=== PATIENT | female | born 1985 | race Caucasian/White ===

== ENCOUNTER 2016-05-07 11:45 | Observation (INO) | payer OTHER ==
[~2016-05-07] VITALS: Ht 170.2 cm; Wt 91.0 kg
[~2016-05-07 11:45] MED LIST: AUGM875T PO; BUPR100CR PO
[2016-05-07 12:06] VITALS: BP 153/81; PULSE 87
[2016-05-07] MEDS ORDERED: ONDANSETRON ODT 4 MG TAB PO PRN (12:45)
[2016-05-07] MEDS ORDERED: SODIUM CHLORIDE 0.9% FLUSH 5 ML FLUSH IVF PRN (12:45)
[2016-05-07] MEDS ORDERED: ACETAMINOPHEN 325 MG TAB PO PRN (12:45)
[2016-05-07] MEDS ORDERED: ZOLPIDEM TARTRATE 5 MG TAB PO PRN (12:45)
[2016-05-07 13:08] VITALS: BP 135/84; PULSE 83
[2016-05-07] MEDS: ASPIRIN EC 81 MG TABEC PO SCH (13:08)
[2016-05-07 13:35] VITALS: BP 129/79; PULSE 78
[2016-05-07 15:21] LABS: BASOPHIL % 0.3 % (0.0-2.0); EOSINOPHIL # 0.5 TH/MM3 (0-0.4); EOSINOPHIL % 4.4 % (0.0-4.0); HEMATOCRIT 37.2 % (35.0-46.0); HEMO FLAGS DIFF FINAL; LYMPH % 14.3 % (9.0-44.0); LYMPHOCYTE # 1.7 TH/MM3 (1.0-4.8); MEAN CELL VOLUME 89.1 FL (80.0-100.0); MEAN CORPUSCULAR HEMOGLOBIN 29.7 PG (27.0-34.0); MEAN CORPUSCULAR HGB CONC 33.3 % (32.0-36.0); MONO % 5.3 % (0.0-8.0); NEUT % 75.7 % (16.0-70.0); PLATELET COUNT 231 TH/MM3 (150-450); RED BLOOD COUNT 4.17 MIL/MM3 (4.00-5.30); RED CELL DISTRIBUTION WIDTH 12.9 % (11.6-17.2); WHITE BLOOD COUNT 11.9 TH/MM3 (4.0-11.0)
[2016-05-07 15:31] LABS: ALT (GPT) 21 U/L (10-53); ANION GAP 8 MEQ/L (5-15); AST (GOT) 41 U/L (15-37); BICARBONATE 19.8 MEQ/L (21.0-32.0); BLOOD UREA NITROGEN 6 MG/DL (7-18); CHLORIDE 108 MEQ/L (98-107); GLOMERULAR FILTRATION RATE 129 ML/MIN (>89); SODIUM (NA) 136 MEQ/L (136-145)
[2016-05-07 15:34] LABS: ALKALINE PHOSPHATASE 84 U/L (45-117); TOTAL BILIRUBIN ADULT 0.3 MG/DL (0.2-1.0)
[2016-05-07 15:53] VITALS: BP 129/72; PULSE 81; RESP 18; TEMP 98
--- NOTE | 2016-05-07 18:02 | PD ---
HPI Chief Complaint slurred speech and parasthesia right arm Date Seen: May 07, 2016 Time Seen: 09:30 Travel History International Travel<30 Days: No Contact w/Intl Traveler<30Days: No Known Affected Area: No History of Present Illness HPI PAtient is 33 weeks and had sudden onset of symptoms of slurred speech and right arm numbness and seeing spots with blurred vision. She ate and some symptoms improved but visual disturbance did not. She was sent from office for electrolytes and neurology consult Para: 0 : 1 History Past Medical History Medical History: Denies Significant Hx Past Surgical History Surgical History: No Previous Surgery Family History Family History: Negative Social History Alcohol Use: No Tobacco Use: No Substance Abuse: No Allergies-Medications (Allergen,Severity, Reaction): Coded Allergies: No Known Allergies (Verified , 11/08/15) Home Meds Active Scripts [id number] M1 875 Mg [id number] Mg PO BID 7 Days Prov:Vanna Barth MD 11/08/15 Bupropion Hcl (Wellbutrin Sr)100 Mg [id number] Mg PO DAILY #90 TAB Ref 3 Prov:Cheyenne Ram MD R3 01/25/15 Review of Systems Except as stated in HPI: all other systems reviewed are Neg Physical Exam Narrative GENERAL: Well-nourished, well-developed patient. SKIN: Warm and dry. HEAD: Normocephalic and atraumatic. EYES: No scleral icterus. No injection or drainage. ENT: No nasal drainage noted. Mucous membranes pink. Airway patent. NECK: Supple, trachea midline. No JVD. CARDIOVASCULAR: Regular rate and rhythm without murmurs, gallops, or rubs. RESPIRATORY: Breath sounds equal bilaterally. No accessory muscle use. BREASTS: Bilateral exam showed no masses , no retractions, no nipple discharge. ABDOMEN/GI: Abdomen soft, non-tender, bowel sounds present, no rebound, no guarding Gravid to 33 weeks size Fundal Height: [-] GENITOURINARY: External Genitalia: intact and normal in appearance BUS glands: [-] Cervix: [-] Dilatation: [-] Effacement: [-] Station: [-] Presentation: [-] Membranes: [intact or ruptured] Uterine Contractions: [-] FHT's: Category: 1 Baseline: [-] Reactive: [-] Variability: [-] Decels: [-] EXTREMITIES: No cyanosis or edema. BACK: Nontender without obvious deformity. No CVA tenderness. NEUROLOGICAL: Awake and alert. Motor and sensory grossly within normal limits. Five out of 5 muscle strength in all muscle groups. Normal speech. Data Data Vital Signs Reviewed: Yes Orders Place In Observation (05/07/16 ) Diet Regular Basic (05/07/16 Lunch) Vital Signs (Adult) RUSH.E4C-OPESR AWAKE (05/07/16 12:40) ^ Heart RUSH.QSHIFT (05/07/16 12:40) Activity Bed Rest With Brp (05/07/16 12:40) Complete Blood Count With Diff (05/07/16 12:40) Bedside Glucose RUSH.QD (05/07/16 12:40) Acetaminophen (Tylenol) (05/07/16 12:45) Sodium Chloride 0.9% Flush (Ns Flush) (05/07/16 21:00) Sodium Chloride 0.9% Flush (Ns Flush) (05/07/16 12:45) Zolpidem (Ambien) (05/07/16 12:45) Ondansetron Odt (Zofran Odt) (05/07/16 12:45) Aspirin Ec (Ecotrin Ec) (05/07/16 12:45) Comprehensive Metabolic Panel (05/07/16 12:40) Calcium (05/07/16 12:40) Electrocardiogram (05/07/16 ) Consult Neurology (05/07/16 ) (Hub Use Only)Inp Phy Cons/Ref (05/07/16 ) Labs Laboratory Tests Test 05/07/16 13:33 White Blood Count 11.9 Red Blood Count 4.17 Hemoglobin 12.4 Hematocrit 37.2 Mean Corpuscular Volume 89.1 Mean Corpuscular Hemoglobin 29.7 Mean Corpuscular Hemoglobin 33.3 Concent Red Cell Distribution Width 12.9 Platelet Count 231 Mean Platelet Volume 9.7 Neutrophils (%) (Auto) 75.7 Lymphocytes (%) (Auto) 14.3 Monocytes (%) (Auto) 5.3 Eosinophils (%) (Auto) 4.4 Basophils (%) (Auto) 0.3 Neutrophils # (Auto) 9.0 Lymphocytes # (Auto) 1.7 Monocytes # (Auto) 0.6 Eosinophils # (Auto) 0.5 Basophils # (Auto) 0.0 CBC Comment DIFF FINAL Differential Comment Sodium Level 136 Potassium Level 5.0 Chloride Level 108 Carbon Dioxide Level 19.8 Anion Gap 8 Blood Urea Nitrogen 6 Creatinine 0.56 Estimat Glomerular Filtration 129 Rate Random Glucose 50 Calcium Level 8.8 Total Bilirubin 0.3 Aspartate Amino Transf 41 (AST/SGOT) Alanine Aminotransferase 21 (ALT/SGPT) Alkaline Phosphatase 84 Total Protein 7.3 Albumin 2.5 MDM Interpretation(s) slurred speech and hypoglycemia R/o CVA or TIA Plan neurology consult and labs Admit 23 hour obs Jamar Phelps MD May 07, 2016 18:02
[2016-05-07 19:15] VITALS: BP 135/71; PULSE 91; RESP 16; TEMP 98
[2016-05-07] MEDS ORDERED: SODIUM CHLORIDE 0.9% FLUSH 5 ML FLUSH IVF SCH (21:00)
--- NOTE | 2016-05-07 21:49 | MB ---
cc: KASIA CUI M.D. DATE OF CONSULTATION: 05/07/2016 DATE OF : 1985, 30 REASON FOR CONSULTATION Slurring of speech, some numbness of face, blurred, double vision. HISTORY OF PRESENT ILLNESS: The patient is a 30 year-old woman who was in her usual state of health this morning when she started feeling a little strange, had some slurring of speech, some clumsiness of the hand, questionable double vision, came to the ER and hence admitted for evaluation. She seems to be back to baseline. Currently she does not have any diplopia. No ptosis. No numbness or tingling, drift or leg lag. No chest pain, or shortness of breath. She is 33 weeks . OTHER MEDICAL HISTORY: She states a few months ago she had similar symptoms attributed to low glucose levels, had something to eat and it went away, this time it did not. PAST MEDICAL HISTORY: Otherwise unremarkable. SOCIAL HISTORY: No alcohol, tobacco, . ALLERGIES: Declines. MEDICATIONS: vitamins. PHYSICAL EXAMINATION: Vitals: Her initial blood pressure was 153/81 with a heart rate of 87, temperature 98, current blood pressure is 129/72. Neck: Supple. No bruits. Heart: Regular. NEUROLOGIC: She is awake and alert. She is oriented and fluent. Pupils reactive. Visual seo full. Face symmetrical. Tongue midline. There is no ptosis. No nystagmus. No diplopia. Facial sensation is normal. Motor: There is no drift or leg lag. [id number], no dysmetria. Strength 5/5 proximally as well as distally. DTRs are 2+. Toes are both downgoing. Sensory exam is unremarkable for all modalities. LABORATORY DATA: Labs were reviewed. White count 11.9. Chemistries, her CO2 was 19.8 but her glucose level was 50. This was at 01:33 p.m., AST 41, albumin 2.5. IMPRESSION The patient is a 30-year-old woman with what sounds like TIA symptoms, however, very well may be due to her hypoglycemia, glucose level 50. RECOMMENDATIONS Recommend just staying on the baby aspirin and due to her history I would recommend getting an MRI of the brain without contrast. A baby aspirin was given to her initially, watch her blood pressure, control it. She does not exhibit any edema of the lower extremities. There is no history of any epilepsy in the family or with the patient. I do not think an EEG is indicated. If her MRI is unremarkable, certainly she can be discharged from my perspective. She will need to maintain her glucose levels, normal as much as possible, so instead of eating larger meals, I would recommend eating smaller meals and have some snacking in between. She may benefit from obtaining a Glucometer and checking an Accu-Chek every now and then. Orders have been placed. Thank you for allowing me to participate in this pleasant woman's care. Of note, I did tell her that if her imaging is negative she can go home and follow up with me as an outpatient. MD LISBETH Daley/SARAH /6:04 PM /8:30 PM
--- NOTE | 2016-05-08 09:49 | RADRPT ---
EXAM DATE/TIME: 05/08/2016 09:07 [facility] COMPARISON: No previous studies available for comparison. INDICATIONS : Blurred vision with slurred speech and right sided numbness/weakness yesterday that has resolved. MEDICAL HISTORY : None. SURGICAL HISTORY : None. ENCOUNTER: Subsequent ACUITY: 1 day PAIN SCORE: 0/10 LOCATION: cranial TECHNIQUE: Multiplanar, multisequence MRI of the brain was performed without contrast. FINDINGS: CEREBRUM: The ventricles are normal for age. No evidence of midline shift, mass lesion, hemorrhage or acute in farction. No extraaxial fluid collections are seen. The pituitary gland and suprasellar cistern are normal in configuration. WHITE MATTER: No significant signal abnormalities are seen in the white matter. POSTERIOR FOSSA: The cerebellum and brainstem are intact. The 4th ventricle is midline. The cerebellopontine angle is unremarkable. The cerebellar tonsils are normal in position. DIFFUSION IMAGING: No focal areas of restricted diffusion are seen. No evidence of acute infarction. EXTRACRANIAL: The visualized portions of the orbits and paranasal sinuses are unremarkable. CONCLUSION: Normal examination. Fernanda Roland MD on May 08, 2016 at 9:41 Board Certified Radiologist. This report was verified electronically.
[2016-05-08] MEDS: ASPIRIN EC 81 MG TABEC PO SCH (10:26)
[2016-05-08 10:29] VITALS: BP 138/75; PULSE 99
[2016-05-08 11:00] VITALS: RESP 18
--- NOTE | 2016-05-08 12:24 | HHI.PR ---
Subjective Remarks doing better symptoms resolved and MRI normal Objective Vital Signs Date Time Temp Pulse Resp B/P Pulse Ox O2 Delivery O2 Flow Rate FiO2 05/07/16 19:15 91 135/71 05/07/16 19:15 98.0 16 05/07/16 15:53 81 18 129/72 05/07/16 15:53 98.0 05/07/16 13:35 78 129/79 05/07/16 13:08 83 135/84 Result Diagram: 05/07/16 1333 05/07/16 1333 Other Results GENERAL: SKIN: Warm and dry. HEAD: Normocephalic. EYES: No scleral icterus. No injection or drainage. NECK: Supple, trachea midline. No JVD or lymphadenopathy. GASTROINTESTINAL: Abdomen soft, non-tender, nondistended. Gravid uterus MUSCULOSKELETAL: No cyanosis, or edema. BACK: Nontender without obvious deformity. No CVA tenderness. Assessment and Plan Problem List: (1) Blurred vision, bilateral Status: Acute (2) Arm paresthesia, right Status: Acute Plan: Sx resolved and [facility] May 08, 2016 12:24
--- NOTE | 2016-05-08 12:27 | HHI.DCPOC ---
Discharge Care Plan Diagnosis: (1) Arm paresthesia, right Report Symptoms to Your Doctor -Temperate above 100.5 degrees -Redness, of incision or excessive or foul smelling drainage -Unusual pain or calf pain -Increased vaginal bleeding -Painful or difficulty urinating -Feelings of extreme sadness or anxiety after 2 weeks Goals to Promote Your Health * To prevent worsening of your condition and complications * To maintain your health at the optimal level Directions to Meet Your Goals Take your medications as prescribed Follow your dietary instruction Follow activity as directed Ensure plenty of rest for recovery Drink fluids for hydration Keep your appointments as scheduled Take your immunizations and boosters as scheduled If your symptoms worsen call your PCP, if no PCP go to Urgent Care Center or Emergency Room Smoking is Dangerous to Your Health. Avoid second hand smoke Call the 24-hour crisis hotline for domestic abuse at Jamar Phelps MD May 08, 2016 12:27
--- NOTE | 2016-05-08 12:28 | HHI.DS ---
Admission Date May 07, 2016 at 11:45 Discharge Date: May 08, 2016 Admitting Diagnosis Diagnosis: (1) Arm paresthesia, right Brief History PAtient is 33 weeks and had sudden onset of symptoms of slurred speech and right arm numbness and seeing spots with blurred vision. She ate and some symptoms improved but visual disturbance did not. She was sent from office for electrolytes and neurology consult Hospital Course dc home after 23 hour obs sx resolved and MRI negative Pt Condition on Discharge: Good Discharge Disposition: Discharge Home Discharge Instructions Diet Instructions: As Tolerated, No Restrictions Activities You Can Perform: Regular-No Restrictions Follow up Referrals: [employer] - 1 Week @ [facility] with Jamar Phelps MD Continued Medications: Bupropion Hcl (Wellbutrin Sr) 100 Mg Tab 100 MG PO DAILY #90 Ref 3 TAB Discontinued Medications: () 875 Mg Tab 875 MG PO BID Days 7 TAB Jamar Phelps MD May 08, 2016 12:28
--- NOTE | 2016-05-08 16:13 | EKG ---
Date Performed: 05/07/2016 Time Performed: 13:45:38 PTAGE: 30 years EKG: Sinus rhythm WITH SHORT [place] INTERVAL BORDERLINE ECG NO PREVIOUS TRACING DOCTOR: Francisco Oreilly Interpretating Date/Time 05/08/2016 16:11:40
== END 2016-05-08 15:26 | disposition home or self-care (01) ==
LOC: H2EA 11:45
PROVIDERS: ADMIT Obstetrics & Gynecology; ATTEND Obstetrics & Gynecology
DX: O26.93 Pregnancy related conditions, unspecified, third trimester (principal); R20.0 Anesthesia of skin; R47.81 Slurred speech; E16.2 Hypoglycemia, unspecified; Z3A.33 33 weeks gestation of pregnancy
CPT/HCPCS: 70551; 80053; 82948; 85025; 93005; G0378

== ENCOUNTER 2016-06-06 14:39 | Emergency (ER) | payer OTHER ==
[2016-06-06] VITALS (16 sets, daily range): BP systolic 127–149; BP diastolic 63–86; PULSE 81–101; RESP 20; TEMP 98.2
[~2016-06-06 14:39] MED LIST changes: -AUGM875T PO
[2016-06-06 16:04] LABS: BLOOD, URINE NEG (NEG); COMMENT (UR) CULT NOT INDICATED; CULTURE IF INDICATED CULT NOT INDICATED; GLUCOSE,URINE NEG (NEG); KETONE, URINE NEG (NEG); MUCUS URINE FEW /lpf (OCC); NITRITE,URINE NEG (NEG); SQUAMOUS EPITHELIAL CELL URINE 1 /hpf (0-5); URINE COLOR YELLOW (YELLW/STRAW)
[2016-06-06 16:13] LABS: HEMATOCRIT 34.3 % (35.0-46.0); MEAN CELL VOLUME 86.7 FL (80.0-100.0); MEAN CORPUSCULAR HEMOGLOBIN 30.9 PG (27.0-34.0); MEAN CORPUSCULAR HGB CONC 35.7 % (32.0-36.0); PLATELET COUNT 192 TH/MM3 (150-450); RED BLOOD COUNT 3.96 MIL/MM3 (4.00-5.30); RED CELL DISTRIBUTION WIDTH 13.7 % (11.6-17.2); REVIEW FLAG FINAL; WHITE BLOOD COUNT 10.9 TH/MM3 (4.0-11.0)
[2016-06-06 16:24] LABS: ALT (GPT) 22 U/L (10-53); ANION GAP 9 MEQ/L (5-15); AST (GOT) 22 U/L (15-37); BICARBONATE 22.1 MEQ/L (21.0-32.0); BLOOD UREA NITROGEN 12 MG/DL (7-18); CHLORIDE 106 MEQ/L (98-107); GLOMERULAR FILTRATION RATE 83 ML/MIN (>89); POTASSIUM 4.1 MEQ/L (3.5-5.1); SODIUM (NA) 137 MEQ/L (136-145)
[2016-06-06 16:26] LABS: ALKALINE PHOSPHATASE 96 U/L (45-117); TOTAL BILIRUBIN ADULT 0.2 MG/DL (0.2-1.0)
--- NOTE | 2016-06-06 17:41 | PD ---
HPI Date Seen: Jun 06, 2016 Time Seen: 16:00 Travel History International Travel<30 Days: No Contact w/Intl Traveler<30Days: No Known Affected Area: No History of Present Illness HPI doing well hypertension 158/98 in office Para: 0 : 1 History Past Medical History Medical History: Denies Significant Hx Past Surgical History Surgical History: No Previous Surgery Family History Family History: Negative Social History Alcohol Use: No Tobacco Use: No Substance Abuse: No Allergies-Medications (Allergen,Severity, Reaction): Coded Allergies: Cat Dander (Verified Allergy, Severe, ITCHING, RUNNY NOSE, SNEEZING, RASH , 05/08/16) CATS Cultivated Oat Pollen (Verified Allergy, Severe, ITCHING, RUNNY NOSE, SNEEZING , 05/08/16) Horse Dander (Verified Allergy, Severe, ITCHING, RUNNY NOSE, SNEEZING AND RASH, 05/08/16) Home Meds Active Scripts Bupropion Hcl (Wellbutrin Sr)100 Mg [id number] Mg PO DAILY #90 TAB Ref 3 Prov:Cheyenne Ram MD R3 01/25/15 Review of Systems Except as stated in HPI: all other systems reviewed are Neg Physical Exam Vital Signs Date Time Temp Pulse Resp B/P Pulse Ox O2 Delivery O2 Flow Rate FiO2 06/06/16 16:21 81 127/63 06/06/16 16:20 98 06/06/16 16:15 84 06/06/16 16:15 101 143/79 06/06/16 16:05 99 06/06/16 16:00 20 06/06/16 16:00 93 149/71 06/06/16 16:00 98.2 06/06/16 16:00 87 06/06/16 15:55 95 06/06/16 15:50 97 06/06/16 15:45 90 06/06/16 15:45 93 138/76 06/06/16 15:40 93 06/06/16 15:35 93 06/06/16 15:31 91 138/86 06/06/16 15:30 100 06/06/16 15:25 89 06/06/16 15:20 93 06/06/16 15:15 92 137/83 06/06/16 15:13 88 141/79 Narrative GENERAL: Well-nourished, well-developed patient. SKIN: Warm and dry. HEAD: Normocephalic and atraumatic. EYES: No scleral icterus. No injection or drainage. ENT: No nasal drainage noted. Mucous membranes pink. Airway patent. NECK: Supple, trachea midline. No JVD. CARDIOVASCULAR: Regular rate and rhythm without murmurs, gallops, or rubs. RESPIRATORY: Breath sounds equal bilaterally. No accessory muscle use. BREASTS: Bilateral exam showed no masses , no retractions, no nipple discharge. ABDOMEN/GI: Abdomen soft, non-tender, bowel sounds present, no rebound, no guarding Gravid to [-] weeks size Fundal Height: [-] GENITOURINARY: External Genitalia: intact and normal in appearance BUS glands: [-] Cervix: [-] Dilatation: [-] Effacement: [-] Station: [-] Presentation: [-] Membranes: [intact or ruptured] Uterine Contractions: [-] FHT's: Category: [-] Baseline: [-] Reactive: [-] Variability: [-] Decels: [-] EXTREMITIES: No cyanosis or edema. BACK: Nontender without obvious deformity. No CVA tenderness. NEUROLOGICAL: Awake and alert. Motor and sensory grossly within normal limits. Five out of 5 muscle strength in all muscle groups. Normal speech. Data Data Vital Signs Reviewed: Yes Orders Vital Signs (Adult) .ON ADMISSION (06/06/16 15:12) ^ Labor Status (06/06/16 15:12) Urinalysis - C+S If Indicated (06/06/16 15:12) ^ Non Stress Test (06/06/16 15:12) Diet Regular Basic (06/06/16 Dinner) Cbc No Diff, Includes Plts (06/06/16 15:12) Comprehensive Metabolic Panel (06/06/16 15:12) Blood Pressure (06/06/16 15:12) Labs Laboratory Tests Test 06/06/16 15:30 White Blood Count 10.9 Red Blood Count 3.96 Hemoglobin 12.2 Hematocrit 34.3 Mean Corpuscular Volume 86.7 Mean Corpuscular Hemoglobin 30.9 Mean Corpuscular Hemoglobin 35.7 Concent Red Cell Distribution Width 13.7 Platelet Count 192 Mean Platelet Volume 10.4 Urine Color YELLOW Urine Turbidity CLEAR Urine pH 7.0 Urine Specific [place] 1.014 Urine Protein NEG Urine Glucose (UA) NEG Urine Ketones NEG Urine Occult Blood NEG Urine Nitrite NEG Urine Bilirubin NEG Urine Urobilinogen LESS THAN 2.0 Urine Leukocyte Esterase NEG Urine WBC LESS THAN 1 Urine Squamous Epithelial 1 Cells Urine Mucus FEW Microscopic Urinalysis Comment CULT NOT INDICATED Sodium Level 137 Potassium Level 4.1 Chloride Level 106 Carbon Dioxide Level 22.1 Anion Gap 9 Blood Urea Nitrogen 12 Creatinine 0.82 Estimat Glomerular Filtration 83 Rate Random Glucose 73 Calcium Level 8.8 Total Bilirubin 0.2 Aspartate Amino Transf 22 (AST/SGOT) Alanine Aminotransferase 22 (ALT/SGPT) Alkaline Phosphatase 96 Total Protein 7.2 Albumin 2.8 MDM Medical Record Reviewed: Yes Interpretation(s) induced hypertension improved with rest Narrative Course / MDM patient had serial BP and labs negative ok to dc home Plan dc home follow up 1 week Critical Care Time (mins): 20 Physician Communication discussed hypertension and term no preeclampsia but discussed risk and symptoms Attending Attestation pt needed to be seen in er Disposition: 01 DISCHARGE HOME Condition: Good Referrals: Jamar Phelps MD 1 week Patient Instructions: General Instructions Departure Forms: Tests/Procedures Jamar Phelps MD Jun 06, 2016 17:41
--- NOTE | 2016-06-06 17:43 | PD ---
HPI Travel History International Travel<30 Days: No Contact w/Intl Traveler<30Days: No Known Affected Area: No History of Present Illness HPI doing well hypertension 158/98 in office Allergies-Medications (Allergen,Severity, Reaction): Coded Allergies: Cat Dander (Verified Allergy, Severe, ITCHING, RUNNY NOSE, SNEEZING, RASH , 05/08/16) CATS Cultivated Oat Pollen (Verified Allergy, Severe, ITCHING, RUNNY NOSE, SNEEZING , 05/08/16) Horse Dander (Verified Allergy, Severe, ITCHING, RUNNY NOSE, SNEEZING AND RASH, 05/08/16) Home Meds Active Scripts Bupropion Hcl (Wellbutrin Sr)100 Mg Per186 Mg PO DAILY #90 TAB Ref 3 Prov:Cheyenne Ram MD R3 01/25/15 Physical Exam Vital Signs Date Time Temp Pulse Resp B/P Pulse Ox O2 Delivery O2 Flow Rate FiO2 06/06/16 16:21 81 127/63 06/06/16 16:20 98 06/06/16 16:15 84 06/06/16 16:15 101 143/79 06/06/16 16:05 99 06/06/16 16:00 20 06/06/16 16:00 93 149/71 06/06/16 16:00 98.2 06/06/16 16:00 87 06/06/16 15:55 95 06/06/16 15:50 97 06/06/16 15:45 90 06/06/16 15:45 93 138/76 06/06/16 15:40 93 06/06/16 15:35 93 06/06/16 15:31 91 138/86 06/06/16 15:30 100 06/06/16 15:25 89 06/06/16 15:20 93 06/06/16 15:15 92 137/83 06/06/16 15:13 88 141/79 Narrative GENERAL: Well-nourished, well-developed patient. SKIN: Warm and dry. HEAD: Normocephalic and atraumatic. EYES: No scleral icterus. No injection or drainage. ENT: No nasal drainage noted. Mucous membranes pink. Airway patent. NECK: Supple, trachea midline. No JVD. CARDIOVASCULAR: Regular rate and rhythm without murmurs, gallops, or rubs. RESPIRATORY: Breath sounds equal bilaterally. No accessory muscle use. BREASTS: Bilateral exam showed no masses , no retractions, no nipple discharge. ABDOMEN/GI: Abdomen soft, non-tender, bowel sounds present, no rebound, no guarding Gravid to [-] weeks size Fundal Height: [-] GENITOURINARY: External Genitalia: intact and normal in appearance BUS glands: [-] Cervix: [-] Dilatation: [-] Effacement: [-] Station: [-] Presentation: [-] Membranes: [intact or ruptured] Uterine Contractions: [-] FHT's: Category: [-] Baseline: [-] Reactive: [-] Variability: [-] Decels: [-] EXTREMITIES: No cyanosis or edema. BACK: Nontender without obvious deformity. No CVA tenderness. NEUROLOGICAL: Awake and alert. Motor and sensory grossly within normal limits. Five out of 5 muscle strength in all muscle groups. Normal speech. Data Data Orders Vital Signs (Adult) .ON ADMISSION (06/06/16 15:12) ^ Labor Status (06/06/16 15:12) Urinalysis - C+S If Indicated (06/06/16 15:12) ^ Non Stress Test (06/06/16 15:12) Diet Regular Basic (06/06/16 Dinner) Cbc No Diff, Includes Plts (06/06/16 15:12) Comprehensive Metabolic Panel (06/06/16 15:12) Blood Pressure (06/06/16 15:12) Attending Discharge Order (06/06/16 ) Labs Laboratory Tests Test 06/06/16 15:30 White Blood Count 10.9 Red Blood Count 3.96 Hemoglobin 12.2 Hematocrit 34.3 Mean Corpuscular Volume 86.7 Mean Corpuscular Hemoglobin 30.9 Mean Corpuscular Hemoglobin 35.7 Concent Red Cell Distribution Width 13.7 Platelet Count 192 Mean Platelet Volume 10.4 Urine Color YELLOW Urine Turbidity CLEAR Urine pH 7.0 Urine Specific [place] 1.014 Urine Protein NEG Urine Glucose (UA) NEG Urine Ketones NEG Urine Occult Blood NEG Urine Nitrite NEG Urine Bilirubin NEG Urine Urobilinogen LESS THAN 2.0 Urine Leukocyte Esterase NEG Urine WBC LESS THAN 1 Urine Squamous Epithelial 1 Cells Urine Mucus FEW Microscopic Urinalysis Comment CULT NOT INDICATED Sodium Level 137 Potassium Level 4.1 Chloride Level 106 Carbon Dioxide Level 22.1 Anion Gap 9 Blood Urea Nitrogen 12 Creatinine 0.82 Estimat Glomerular Filtration 83 Rate Random Glucose 73 Calcium Level 8.8 Total Bilirubin 0.2 Aspartate Amino Transf 22 (AST/SGOT) Alanine Aminotransferase 22 (ALT/SGPT) Alkaline Phosphatase 96 Total Protein 7.2 Albumin 2.8 MDM Diagnosis Diagnosis: Primary Impression: induced hypertension Qualified Code: O13.3 - induced hypertension, third trimester Disposition: 01 DISCHARGE HOME Condition: Good Referrals: Jamar Phelps MD 1 week Patient Instructions: General Instructions Departure Forms: Tests/Procedures Jamar Phelps MD Jun 06, 2016 17:43
== END 2016-06-06 17:49 | disposition home or self-care (01) ==
LOC: HOBED 14:39
DX: O13.9 Gestational [pregnancy-induced] hypertension without significant proteinuria, unspecified trimester (principal); Z3A.00 Weeks of gestation of pregnancy not specified
CPT/HCPCS: 36415; 59025; 80053; 81001; 85027

== ENCOUNTER 2016-06-20 08:09 | Inpatient (IN) | payer OTHER ==
[2016-06-20] VITALS (52 sets, daily range): BP systolic 117–153; BP diastolic 64–104; PULSE 40–116; RESP 18–20; TEMP 97.5–98.8; O2SAT 98–100
[2016-06-20] MEDS ORDERED: SODIUM CHLORIDE 0.9% FLUSH 5 ML FLUSH IV FLUSH PRN (08:30)
[2016-06-20] MEDS ORDERED: SODIUM CHLOR 0.9% 1000 ML INJ 1,000 ML OTHER PRN (08:30)
--- NOTE | 2016-06-20 08:51 | HHI.HP ---
HPI Chief Complaint induction at 39 weeks Date Seen: Jun 20, 2016 Time Seen: 08:30 Travel History International Travel<30 Days: No Contact w/Intl Traveler<30Days: No Known Affected Area: No History of Present Illness HPI 30 yo comes for induction of labor. She has had 2-3 episodes of headache trouble with speech and numbness. She has has episodes of elevated BP but not high enough to deliver before 39 weeks nick[pite a non-favorable she and I have decided delivery with minor symptoms described warrants risk of induction Para: 0 : 1 History Past Medical History Medical History: Denies Significant Hx Past Surgical History Surgical History: No Previous Surgery Family History Family History: Negative Social History Alcohol Use: No Tobacco Use: No Substance Abuse: No Allergies-Medications (Allergen,Severity, Reaction): Coded Allergies: Cat Dander (Verified Allergy, Severe, ITCHING, RUNNY NOSE, SNEEZING, RASH , 05/08/16) CATS Cultivated Oat Pollen (Verified Allergy, Severe, ITCHING, RUNNY NOSE, SNEEZING , 05/08/16) Horse Dander (Verified Allergy, Severe, ITCHING, RUNNY NOSE, SNEEZING AND RASH, 05/08/16) Home Meds Active Scripts Bupropion Hcl (Wellbutrin Sr)100 Mg [id number] Mg PO DAILY #90 TAB Ref 3 Prov:Cheyenne Ram MD 01/25/15 Review of Systems Except as stated in HPI: all other systems reviewed are Neg Physical Exam Narrative GENERAL: Well-nourished, well-developed patient. SKIN: Warm and dry. HEAD: Normocephalic and atraumatic. EYES: No scleral icterus. No injection or drainage. ENT: No nasal drainage noted. Mucous membranes pink. Airway patent. NECK: Supple, trachea midline. No JVD. CARDIOVASCULAR: Regular rate and rhythm without murmurs, gallops, or rubs. RESPIRATORY: Breath sounds equal bilaterally. No accessory muscle use. BREASTS: Bilateral exam showed no masses , no retractions, no nipple discharge. ABDOMEN/GI: Abdomen soft, non-tender, bowel sounds present, no rebound, no guarding Gravid to [-] weeks size Fundal Height: [-] GENITOURINARY: External Genitalia: intact and normal in appearance BUS glands: [-] Cervix: [-] Dilatation: [-] Effacement: [-] Station: [-] Presentation: [-] Membranes: [intact or ruptured] Uterine Contractions: [-] FHT's: Category: [-] Baseline: [-] Reactive: [-] Variability: [-] Decels: [-] EXTREMITIES: No cyanosis or edema. BACK: Nontender without obvious deformity. No CVA tenderness. NEUROLOGICAL: Awake and alert. Motor and sensory grossly within normal limits. Five out of 5 muscle strength in all muscle groups. Normal speech. Data Data Vital Signs Reviewed: Yes Orders Admit To Inpatient (06/20/16 ) Diet Regular Basic (06/20/16 Breakfast) ^ Labor Induction (06/20/16 08:30) ^ Vaginal Insert (06/20/16 08:30) ^ Vaginal Lavage (06/20/16 08:30) ^ Heart (06/20/16 08:30) Sodium Chloride 0.9% Flush (Ns Flush) (06/20/16 09:00) Sodium Chloride 0.9% Flush (Ns Flush) (06/20/16 08:30) Sodium Chlor 0.9% 1000 Ml Inj (Ns 1000 M (06/20/16 08:30) Misoprostol Supp (Cytotec Supp) (06/20/16 12:30) Inpatient Certification (06/20/16 ) Assessment/Plan Problem List: (1) 39 weeks gestation of (2) Hypertension complicating Assessment and Plan induction Jamar Phelps MD Jun 20, 2016 08:51
[2016-06-20] MEDS ORDERED: SODIUM CHLORIDE 0.9% FLUSH 5 ML FLUSH IV FLUSH SCH (09:00)
[2016-06-20] MEDS ORDERED: PENICILLIN G POTASSIUM INJ 5,000,000 UNITS in SODIUM CHLORIDE 0.9% INJ 100 ML IV ONE (10:00)
[2016-06-20] MEDS ORDERED: MISOPROSTOL 25 MCG SUPP VAGINAL PRN (10:00)
[2016-06-20] MEDS ORDERED: NS 500 ML BOLUS IV PRN (10:15)
[2016-06-20] MEDS ORDERED: MINERAL OIL 10 ML VIAL TOP PRN (10:15)
[2016-06-20] MEDS ORDERED: LIDOCAINE HCL 1% 50 ML VIAL I-DERMAL PRN (10:15)
[2016-06-20] MEDS ORDERED: NS 1000 ML IV PRN (10:15)
[2016-06-20] MEDS ORDERED: LACTATED RINGER'S 1000 ML BOLUS IV PRN (10:15)
[2016-06-20] MEDS ORDERED: CITRIC ACID-SODIUM CITRATE LIQ 30 ML UDC PO SCH (10:15)
[2016-06-20] MEDS ORDERED: LIDOCAINE HCL 1% 50 ML VIAL INFIL PRN (10:15)
[2016-06-20] MEDS ORDERED: OXYTOCIN 30 UNITS 500ML PREMIX IV ONE (10:15)
[2016-06-20 10:17] LABS: AUTOMATED NEUTROPHIL # 3.7 TH/MM3 (1.8-7.7); BASOPHIL % 0.3 % (0.0-2.0); EOSINOPHIL # 0.3 TH/MM3 (0-0.4); EOSINOPHIL % 5.1 % (0.0-4.0); HEMATOCRIT 35.7 % (35.0-46.0); HEMO FLAGS DIFF FINAL; LYMPH % 18.6 % (9.0-44.0); MEAN CELL VOLUME 88.2 FL (80.0-100.0); MEAN CORPUSCULAR HEMOGLOBIN 30.1 PG (27.0-34.0); MEAN CORPUSCULAR HGB CONC 34.2 % (32.0-36.0); MONO % 6.1 % (0.0-8.0); NEUT % 69.9 % (16.0-70.0); PLATELET COUNT 124 TH/MM3 (150-450); RED BLOOD COUNT 4.05 MIL/MM3 (4.00-5.30); RED CELL DISTRIBUTION WIDTH 13.6 % (11.6-17.2); WHITE BLOOD COUNT 5.3 TH/MM3 (4.0-11.0)
[2016-06-20 10:53] LABS: BACTERIA, URINE RARE /hpf; BLOOD, URINE NEG (NEG); GLUCOSE,URINE NEG (NEG); KETONE, URINE NEG (NEG); MUCUS URINE FEW /lpf (OCC); NITRITE,URINE NEG (NEG); PH, URINE 6.5 (5.0-8.5); SQUAMOUS EPITHELIAL CELL URINE 1 /hpf (0-5); URINE COLOR YELLOW (YELLW/STRAW)
[2016-06-20 10:57] LABS: COMMENT (UR) CULT NOT INDICATED; CULTURE IF INDICATED CULT NOT INDICATED
[2016-06-20] MEDS ORDERED: MISOPROSTOL 25 MCG SUPP VAGINAL ONE (14:00)
[2016-06-20] MEDS ORDERED: PENICILLIN G POTASSIUM INJ 2,500,000 UNITS in SODIUM CHLORIDE 0.9% INJ 100 ML IV SCH ×2 (14:00→21:30)
--- NOTE | 2016-06-20 16:50 | PD.LABORPN ---
Subjective Subjective doing well starting to get uncomfortable Objective Vital Signs Vital Signs Date Time Temp Pulse Resp B/P Pulse Ox O2 Delivery O2 Flow Rate FiO2 06/20/16 13:30 20 06/20/16 13:30 97.5 06/20/16 13:19 81 153/98 06/20/16 10:26 81 147/91 Objective Pelvic Exam: Cervix: [-] Dilatation: 1 Effacement: 80 Station: -2 Presentation: [-] Membranes: AROM MSF Uterine Contractions: [-] FHT's: Category: 1 Baseline: [-] Reactive: [-] Variability: [-] Decels: [-] Assessment/Plan Problem List: (1) 39 weeks gestation of (2) Hypertension complicating Jamar Phelps MD Jun 20, 2016 16:50
[2016-06-20] MEDS: LACTATED RINGER'S 1000 ML IV SCH ×2 (16:58→21:55)
[2016-06-20] MEDS ORDERED: OXYTOCIN 30 UNITS-500ML PREMIX 500 ML IV SCH (17:00)
[2016-06-20] MEDS: ONDANSETRON HCL 4 MG/2 ML VIAL IV PUSH PRN ×2 (17:33→22:11)
[2016-06-20] MEDS ORDERED: fentaNYL 2MCG-BUPIV 0.125% INJ 100 ML ONE (19:40)
[2016-06-20] MEDS ORDERED: fentaNYL 2MCG-BUPIV 0.125% 100 ML EPIDURAL SCH (20:15)
[2016-06-20] MEDS ORDERED: DO NOT ADMINISTER ANTICOAGULANTS XX PRN (20:15)
[2016-06-20] MEDS ORDERED: ePHEDrine/NS 25 MG/5 ML SYR IV PRN (20:15)
[2016-06-20] MEDS ORDERED: NO SYSTEM NARCOTICS XX PRN (20:15)
[2016-06-20] MEDS ORDERED: EPIDURAL-NO SYSTEMIC NARCOTICS XX PRN (23:15)
[2016-06-20] MEDS ORDERED: EPIDURAL-NALOXONE HCL 0.4 MG/ML AMP IV PRN (23:15)
[2016-06-20] MEDS ORDERED: EPIDURAL-DIPHENHYDRAMINE HCL 50 MG/ML VIAL IV PUSH PRN (23:15)
[2016-06-20] MEDS ORDERED: EPIDURAL-DO NOT ADMINISTER ANTICOAGULANTS XX PRN (23:15)
[2016-06-20] MEDS ORDERED: EPIDURAL-DIPHENHYDRAMINE HCL 50 MG CAP PO PRN (23:15)
[2016-06-20 23:50] LABS: AUTOMATED NEUTROPHIL # 6.1 TH/MM3 (1.8-7.7); BASOPHIL % 0.3 % (0.0-2.0); EOSINOPHIL # 0.1 TH/MM3 (0-0.4); EOSINOPHIL % 1.4 % (0.0-4.0); HEMATOCRIT 32.4 % (35.0-46.0); HEMO FLAGS DIFF FINAL; LYMPH % 13.3 % (9.0-44.0); MEAN CELL VOLUME 87.6 FL (80.0-100.0); MEAN CORPUSCULAR HEMOGLOBIN 30.5 PG (27.0-34.0); MEAN CORPUSCULAR HGB CONC 34.8 % (32.0-36.0); MONO % 4.7 % (0.0-8.0); NEUT % 80.3 % (16.0-70.0); PLATELET COUNT 129 TH/MM3 (150-450); RED CELL DISTRIBUTION WIDTH 13.6 % (11.6-17.2); WHITE BLOOD COUNT 7.5 TH/MM3 (4.0-11.0)
[2016-06-20] MEDS ORDERED: MORPHINE SULFATE PF 5 MG/10 ML VIAL ONE (23:58)
[2016-06-21] VITALS (35 sets, daily range): BP systolic 107–147; BP diastolic 48–102; PULSE 55–85; RESP 16–20; TEMP 97.4–98.1; O2SAT 96–100
--- NOTE | 2016-06-21 00:06 | RADRPT ---
EXAM DATE/TIME: 06/20/2016 23:43 [place] COMPARISON: No previous studies available for comparison. INDICATIONS : Evaluate for any foreign bodies as Section was performed without an instrument count. MEDICAL HISTORY : None. SURGICAL HISTORY : section. ENCOUNTER: Initial ACUITY: 1 day PAIN SCORE: Non-responsive. LOCATION: Bilateral pelvis FINDINGS: Frontal view of the pelvis was performed. No radiopaque foreign bodies seen about the pelvis. At th e margin of the [id number] superiorly in the midline, there is a thin serpiginous density which co uld represent suture. CONCLUSION: 1. No metallic objects seen. 2. Serpiginous linear density midline lower abdomen, possibly representing suture. Drew Rowland MD on June 21, 2016 at 0:01 Board Certified Radiologist. This report was verified electronically.
[2016-06-21 00:10] LABS: ALT (GPT) 112 U/L (10-53); ANION GAP 10 MEQ/L (5-15); AST (GOT) 140 U/L (15-37); BICARBONATE 26.4 MEQ/L (21.0-32.0); BLOOD UREA NITROGEN 8 MG/DL (7-18); CHLORIDE 104 MEQ/L (98-107); GLOMERULAR FILTRATION RATE 89 ML/MIN (>89); POTASSIUM 4.3 MEQ/L (3.5-5.1); SODIUM (NA) 140 MEQ/L (136-145)
[2016-06-21 00:13] LABS: ALKALINE PHOSPHATASE 89 U/L (45-117); TOTAL BILIRUBIN ADULT 0.3 MG/DL (0.2-1.0)
[2016-06-21] MEDS ORDERED: MAGNESIUM SULFATE 40 GM PREMIX 1,000 ML IV SCH ×2 (00:19→10:05)
[2016-06-21] MEDS ORDERED: LACTATED RINGER'S 1000 ML INJ 1,000 ML IV SCH ×2 (00:19→05:36)
[2016-06-21] MEDS ORDERED: MAGNESIUM SULFATE 40 GM PREMIX 1,000 ML ONE (00:28)
[2016-06-21] MEDS ORDERED: CALCIUM GLUCONATE 10% 1 GM/10 ML VIAL IV PUSH PRN ×2 (00:30→10:15)
[2016-06-21] MEDS ORDERED: MAGNESIUM SULFATE 4 GM PREMIX 100 ML IV ONE (00:30)
[2016-06-21] MEDS ORDERED: SODIUM CHLORIDE 0.9% FLUSH 5 ML FLUSH IV PRN ×3 (00:30→10:15)
--- NOTE | 2016-06-21 00:42 | PD.OB.DELI ---
Procedure Note Section Procedure Pre Op Diagnosis: (1) 39 weeks gestation of (2) Hypertension complicating Post Op Diagnosis: (1) 39 weeks gestation of (2) induced hypertension Performed by Jamar Phelps Procedure: Primary Low Transverse Sec Indication for delivery: Nonreassuring heart tracing Informed consent obtained: For anesthesia, For procedure Confirmed correct: Patient, Procedure, Time-out taken Monitoring during procedure: Blood pressure monitoring Urinary catheter: To dependent drainage Sterile preparation: Duraprep Position: Supine with wedge to left side Operative Features Skin Incision: Pfannenstiel Uterine Incision: Low transverse w/knife / blunt ext Membranes Ruptured: Previously Presentation: Occiput anterior Delivery of infant: Uneventful Infant: Female One Minute : 9 Five Minute : 9 Weight: 6# 15 oz Status of : Viable Placenta delivered: Intact Estimated blood loss: 500 Procedure tolerated: Well Maternal Condition: Stable Condition: Stable Procedure in detail upon arrival to or FHT 60 by doppler and we moved along with urgent CS no count at my request and no 3 min dry time of duraprep. Everyone present for delivery Jamar Phelps MD Jun 21, 2016 00:42
[2016-06-21] MEDS ORDERED: SIMETHICONE 80 MG CHEWABLE TAB PO PRN (00:45)
[2016-06-21] MEDS ORDERED: KETOROLAC TROMETHAMINE 60 MG/2 ML (IM) VIAL IM PRN (00:45)
[2016-06-21] MEDS ORDERED: OXYTOCIN 30 UNITS-500ML PREMIX 500 ML IV ONE (00:45)
--- NOTE | 2016-06-21 00:46 | HHI.PR ---
Subjective Remarks Patient has elevated LFT and low platelets. She is now delivered but needs magnesium for HEELP Objective Vital Signs Date Time Temp Pulse Resp B/P Pulse Ox O2 Delivery O2 Flow Rate FiO2 06/21/16 00:38 123/57 06/21/16 00:30 64 122/49 06/21/16 00:15 147/78 06/21/16 00:15 100 06/20/16 23:45 98 06/20/16 23:45 58 18 06/20/16 23:45 97.7 06/20/16 22:25 83 100 06/20/16 22:20 88 100 06/20/16 22:20 88 100 06/20/16 22:15 98 06/20/16 22:15 89 123/78 100 06/20/16 21:57 18 06/20/16 21:55 40 06/20/16 21:50 76 06/20/16 21:45 94 121/75 06/20/16 21:45 83 06/20/16 21:28 98.2 06/20/16 21:25 101 06/20/16 21:20 97 06/20/16 21:16 89 120/68 06/20/16 21:15 92 06/20/16 20:55 89 06/20/16 20:50 87 124/71 06/20/16 20:50 86 06/20/16 20:45 91 06/20/16 20:45 93 117/65 06/20/16 20:40 95 118/64 06/20/16 20:40 85 06/20/16 20:35 80 125/75 06/20/16 20:35 76 06/20/16 20:30 99 130/81 06/20/16 20:30 96 06/20/16 20:25 94 06/20/16 20:25 98 133/76 06/20/16 20:20 92 135/73 06/20/16 20:20 85 06/20/16 20:15 86 06/20/16 20:15 87 135/81 06/20/16 20:10 89 06/20/16 20:10 112 142/85 06/20/16 20:05 102 06/20/16 20:05 93 136/80 06/20/16 20:00 98 06/20/16 20:00 106 139/83 06/20/16 19:56 98.8 18 06/20/16 19:56 98 141/88 06/20/16 19:55 91 100 06/20/16 19:52 92 144/90 06/20/16 19:50 92 100 06/20/16 19:45 90 138/88 100 06/20/16 19:45 88 06/20/16 19:00 87 148/104 06/20/16 18:53 85 143/92 06/20/16 18:00 95 144/85 06/20/16 17:45 83 142/92 06/20/16 17:20 98.0 06/20/16 17:15 90 147/95 06/20/16 17:00 95 147/95 06/20/16 16:54 88 144/92 06/20/16 16:45 84 135/103 06/20/16 16:40 86 147/95 06/20/16 16:39 82 141/104 06/20/16 13:30 20 06/20/16 13:30 97.5 06/20/16 13:19 81 153/98 06/20/16 10:26 81 147/91 Result Diagram: 06/20/16 2230 06/20/16 2230 Jamar Phelps MD Jun 21, 2016 00:46
[2016-06-21 06:19] LABS: HEMATOCRIT 33.9 % (35.0-46.0); MEAN CELL VOLUME 86.7 FL (80.0-100.0); MEAN CORPUSCULAR HGB CONC 34.7 % (32.0-36.0); PLATELET COUNT 136 TH/MM3 (150-450); RED BLOOD COUNT 3.91 MIL/MM3 (4.00-5.30); RED CELL DISTRIBUTION WIDTH 13.8 % (11.6-17.2); REVIEW FLAG FINAL; WHITE BLOOD COUNT 14.6 TH/MM3 (4.0-11.0)
[2016-06-21 06:52] LABS: ALT (GPT) 107 U/L (10-53); ANION GAP 12 MEQ/L (5-15); AST (GOT) 126 U/L (15-37); BICARBONATE 22.8 MEQ/L (21.0-32.0); BLOOD UREA NITROGEN 6 MG/DL (7-18); CHLORIDE 100 MEQ/L (98-107); GLOMERULAR FILTRATION RATE 95 ML/MIN (>89); POTASSIUM 3.9 MEQ/L (3.5-5.1); SODIUM (NA) 135 MEQ/L (136-145)
[2016-06-21 06:55] LABS: ALKALINE PHOSPHATASE 98 U/L (45-117); TOTAL BILIRUBIN ADULT 0.3 MG/DL (0.2-1.0)
[2016-06-21] MEDS ORDERED: SODIUM CHLORIDE 0.9% FLUSH 5 ML FLUSH IV SCH ×3 (09:00→21:00)
[2016-06-21] MEDS ORDERED: DOCUSATE SODIUM 50 MG/SENNA 8.6 MG TAB PO PRN (10:15)
[2016-06-21] MEDS ORDERED: ALUMINUM/MAGNESIUM/SIMETH 30 ML CUP PO PRN (10:15)
[2016-06-21] MEDS ORDERED: WITCH HAZEL 50%/GLYCERIN 12.5% 40 PAD JAR TOPICAL PRN (10:15)
[2016-06-21] MEDS ORDERED: BENZOCAINE 20% TOPICAL SPRAY 60 ML CAN TOPICAL PRN (10:15)
[2016-06-21] MEDS ORDERED: ZOLPIDEM TARTRATE 5 MG TAB PO PRN (10:15)
--- NOTE | 2016-06-21 10:16 | HHI.OB ---
Subjective Post Day: 1 Remarks doing well does not feel good on magnesium Objective Vitals/I&O Vital Signs Date Time Temp Pulse Resp B/P Pulse Ox O2 Delivery O2 Flow Rate FiO2 06/21/16 08:52 97.4 18 06/21/16 08:49 81 130/80 06/21/16 06:05 134/77 06/21/16 06:05 55 06/21/16 06:04 18 06/21/16 05:06 18 06/21/16 05:00 63 129/75 06/21/16 04:04 18 06/21/16 04:00 63 107/78 06/21/16 03:10 97.7 06/21/16 03:10 18 06/21/16 03:00 82 129/87 06/21/16 03:00 18 06/21/16 02:58 69 111/75 06/21/16 02:30 64 18 145/82 06/21/16 01:45 131/73 06/21/16 01:45 16 06/21/16 01:45 98.1 06/21/16 01:15 70 121/64 06/21/16 01:15 18 06/21/16 00:52 68 18 123/61 96 06/21/16 00:51 98.0 06/21/16 00:43 68 06/21/16 00:43 114/48 06/21/16 00:43 76 18 97 06/21/16 00:38 123/57 06/21/16 00:30 64 122/49 06/21/16 00:30 16 06/21/16 00:15 147/78 06/21/16 00:15 100 06/21/16 00:15 16 06/20/16 23:45 98 06/20/16 23:45 58 18 06/20/16 23:45 97.7 06/20/16 22:30 18 06/20/16 22:25 83 100 06/20/16 22:20 88 100 06/20/16 22:20 88 100 06/20/16 22:15 98 06/20/16 22:15 18 06/20/16 22:15 89 123/78 100 06/20/16 22:10 116 100 06/20/16 22:05 108 100 06/20/16 22:00 73 127/75 98 06/20/16 22:00 71 06/20/16 21:57 18 06/20/16 21:55 40 06/20/16 21:50 76 06/20/16 21:45 94 121/75 06/20/16 21:45 83 06/20/16 21:40 76 98 06/20/16 21:35 84 99 06/20/16 21:30 81 06/20/16 21:30 85 130/81 99 06/20/16 21:30 18 06/20/16 21:28 98.2 06/20/16 21:25 101 06/20/16 21:20 97 06/20/16 21:16 89 120/68 06/20/16 21:15 92 06/20/16 21:00 18 06/20/16 20:55 89 06/20/16 20:50 87 124/71 06/20/16 20:50 86 06/20/16 20:45 18 06/20/16 20:45 91 06/20/16 20:45 93 117/65 06/20/16 20:40 95 118/64 06/20/16 20:40 85 06/20/16 20:35 80 125/75 06/20/16 20:35 76 06/20/16 20:30 99 130/81 06/20/16 20:30 96 06/20/16 20:30 18 06/20/16 20:25 94 06/20/16 20:25 98 133/76 06/20/16 20:20 92 135/73 06/20/16 20:20 85 06/20/16 20:15 86 06/20/16 20:15 87 135/81 06/20/16 20:10 89 06/20/16 20:10 112 142/85 06/20/16 20:05 102 06/20/16 20:05 93 136/80 06/20/16 20:00 98 06/20/16 20:00 106 139/83 06/20/16 19:56 98.8 18 06/20/16 19:56 98 141/88 06/20/16 19:55 91 100 06/20/16 19:52 92 144/90 06/20/16 19:50 92 100 06/20/16 19:45 90 138/88 100 06/20/16 19:45 88 06/20/16 19:00 87 148/104 06/20/16 18:53 85 143/92 06/20/16 18:00 95 144/85 06/20/16 17:45 83 142/92 06/20/16 17:20 98.0 06/20/16 17:15 90 147/95 06/20/16 17:00 95 147/95 06/20/16 16:54 88 144/92 06/20/16 16:45 84 135/103 06/20/16 16:40 86 147/95 06/20/16 16:39 82 141/104 06/20/16 13:30 20 06/20/16 13:30 97.5 06/20/16 13:19 81 153/98 06/20/16 10:26 81 147/91 Objective Remarks GENERAL: Well-nourished, well-developed patient. . ABDOMEN/GI: Abdomen soft, non-tender. Fundus: Firm, non-tender at umbilicus. GENITOURINARY: Light to moderate bleeding. EXTREMITIES: No cyanosis or edema, non-tender, without signs of DVT. Medications and IVs Current Medications Medications (Trade) Dose Ordered Sig/Yennifer Route Start Time Stop Time Status Last Admin Miscellaneous Information No systemic narcotics to be given except... UNSCH PRN XX 06/20/16 20:15 06/21/16 20:14 Miscellaneous Information DO NOT ADMINISTER ANY ANTICOAGUL... UNSCH PRN XX 06/20/16 20:15 06/21/16 20:14 (Lr 1000 ml Inj) 1,000 ml @ 100 mls/hr Q10H IV 06/21/16 05:36 06/22/16 01:35 (NS Flush) 2 ml BID IV 06/21/16 09:00 (NS Flush) 2 ml UNSCH PRN IV 06/21/16 00:45 (Mylicon Chew) 80 mg QID PRN PO 06/21/16 00:45 06/21/16 08:47 (Motrin) 600 mg Q6H PRN PO 06/21/16 00:45 (Toradol Inj) 30 mg Q6H PRN IM 06/21/16 00:45 06/22/16 00:44 (Percocet 5-325 Mg) 1 tab Q4H PRN PO 06/21/16 00:45 (Percocet 5-325 Mg) 2 tab Q4H PRN PO 06/21/16 00:45 (M-M-R Ii Inj) 0.5 ml ONCE ONCE SQ 06/22/16 16:00 06/22/16 16:01 (Boostrix Inj) 0.5 ml ONCE ONCE IM 06/22/16 16:00 06/22/16 16:01 Miscellaneous Information NO SYSTEMIC NARCOTICS TO BE GIVEN FO... UNSCH PRN XX 06/20/16 23:15 06/21/16 23:14 (Narcan Inj) 0.4 mg UNSCH PRN IV 06/20/16 23:15 06/21/16 23:14 (Benadryl Inj) 25 mg Q6H PRN IV PUSH 06/20/16 23:15 06/21/16 23:14 (Benadryl) 50 mg Q6H PRN PO 06/20/16 23:15 06/21/16 23:14 Miscellaneous Information ALL NURSING DEPARTMENTS UNSCH PRN XX 06/20/16 23:15 06/21/16 23:14 (NS Flush) 2 ml UNSCH PRN IV 06/21/16 10:15 UNV IV Flush 2 ml 2 ml BID IV 06/21/16 10:15 UNV (Magnesium Sulfate 40 Gm Premix) 1,000 ml @ 50 mls/hr Q20H IV 06/21/16 10:05 06/21/16 18:00 UNV (Calcium Gluconate Inj) 1 gm UNSCH PRN IV PUSH 06/21/16 10:15 UNV (Protonix Inj) 40 mg Q12H IV PUSH 06/21/16 10:15 06/22/16 15:00 UNV Assessment/Plan Problem List: (1) 39 weeks gestation of (2) Hypertension complicating (3) delivery delivered Assessment and Plan [place] Jamar Phelps MD Jun 21, 2016 10:16
[2016-06-21] MEDS ORDERED: OXYTOCIN 30 UNITS-500ML PREMIX 500 ML IV PRN (10:45)
[2016-06-21] MEDS: PANTOPRAZOLE SODIUM 40 MG VIAL IV PUSH SCH ×2 (12:02→23:40)
[2016-06-21] MEDS: oxyCODONE/ACETAMINOPHEN 5 MG/325 MG TAB PO PRN (21:19)
[2016-06-21] MEDS: IBUPROFEN 600 MG TAB PO PRN (21:19)
[2016-06-22] MEDS: oxyCODONE/ACETAMINOPHEN 5 MG/325 MG TAB PO PRN ×4 (05:00→23:56)
[2016-06-22] MEDS: IBUPROFEN 600 MG TAB PO PRN ×4 (05:00→23:56)
[2016-06-22 06:57] LABS: AUTOMATED NEUTROPHIL # 11.9 TH/MM3 (1.8-7.7); BASOPHIL % 0.1 % (0.0-2.0); EOSINOPHIL % 0.3 % (0.0-4.0); HEMATOCRIT 31.6 % (35.0-46.0); HEMO FLAGS DIFF FINAL; LYMPH % 9.2 % (9.0-44.0); LYMPHOCYTE # 1.3 TH/MM3 (1.0-4.8); MEAN CELL VOLUME 86.4 FL (80.0-100.0); MEAN CORPUSCULAR HEMOGLOBIN 29.9 PG (27.0-34.0); MEAN CORPUSCULAR HGB CONC 34.5 % (32.0-36.0); MONO % 6.1 % (0.0-8.0); NEUT % 84.3 % (16.0-70.0); PLATELET COUNT 160 TH/MM3 (150-450); RED BLOOD COUNT 3.66 MIL/MM3 (4.00-5.30); RED CELL DISTRIBUTION WIDTH 13.4 % (11.6-17.2); WHITE BLOOD COUNT 14.1 TH/MM3 (4.0-11.0)
[2016-06-22 07:20] VITALS: BP 115/78; PULSE 79; RESP 18; TEMP 98.1
[2016-06-22] MEDS: PANTOPRAZOLE SOD 40 MG DELAYED RELEASE TAB PO SCH ×2 (09:36→21:00)
--- NOTE | 2016-06-22 10:09 | HHI.OB ---
Subjective Post Day: 1 Remarks doing well Objective Vitals/I&O Vital Signs Date Time Temp Pulse Resp B/P Pulse Ox O2 Delivery O2 Flow Rate FiO2 06/22/16 07:20 98.1 79 18 06/22/16 07:20 115/78 06/21/16 18:10 20 06/21/16 18:00 81 107/66 06/21/16 17:00 85 122/72 06/21/16 16:00 97.6 75 16 117/75 06/21/16 15:00 74 126/74 06/21/16 14:00 73 116/67 06/21/16 13:12 16 06/21/16 13:00 84 111/72 06/21/16 12:30 18 06/21/16 12:00 75 123/83 06/21/16 11:30 20 06/21/16 11:00 68 120/72 06/21/16 10:30 20 Objective Remarks GENERAL: Well-nourished, well-developed patient. . ABDOMEN/GI: Abdomen soft, non-tender. Fundus: Firm, non-tender at umbilicus. GENITOURINARY: Light to moderate bleeding. EXTREMITIES: No cyanosis or edema, non-tender, without signs of DVT. Medications and IVs Current Medications Medications (Trade) Dose Ordered Sig/Yennifer Route Start Time Stop Time Status Last Admin (NS Flush) 2 ml BID IV 06/21/16 09:00 (NS Flush) 2 ml UNSCH PRN IV 06/21/16 00:45 (Mylicon Chew) 80 mg QID PRN PO 06/21/16 00:45 06/21/16 08:47 (Motrin) 600 mg Q6H PRN PO 06/21/16 00:45 06/22/16 05:00 (Percocet 5-325 Mg) 1 tab Q4H PRN PO 06/21/16 00:45 06/22/16 05:00 (Percocet 5-325 Mg) 2 tab Q4H PRN PO 06/21/16 00:45 (M-M-R Ii Inj) 0.5 ml ONCE ONCE SQ 06/22/16 16:00 06/22/16 16:01 (Boostrix Inj) 0.5 ml ONCE ONCE IM 06/22/16 16:00 06/22/16 16:01 06/22/16 00:04 (NS Flush) 2 ml UNSCH PRN IV 06/21/16 10:15 (NS Flush) 2 ml BID IV 06/21/16 21:00 (Calcium Gluconate Inj) 1 gm UNSCH PRN IV PUSH 06/21/16 10:15 (Americaine 20% Top Spr) 1 spray Q4H PRN TOPICAL 06/21/16 10:15 (Tucks Pads) 1 applic QID PRN TOPICAL 06/21/16 10:15 (Alejandra-Colace) 2 tab Q12H PRN PO 06/21/16 10:15 06/22/16 00:03 (Ambien) 5 mg HS PRN PO 06/21/16 10:15 (Mag-Al Plus Susp Liq) 15 ml Q8H PRN PO 06/21/16 10:15 (Protonix) 40 mg Q12HR PO 06/22/16 09:00 06/22/16 09:36 Assessment/Plan Problem List: (1) 39 weeks gestation of (2) Hypertension complicating (3) delivery delivered Assessment and Plan preeclampsia resolving Jamar Phelps MD Jun 22, 2016 10:09
--- NOTE | 2016-06-22 10:50 | HHI.DCPOC ---
Discharge Care Plan Diagnosis: (1) HELLP (hemolytic anemia/elev liver enzymes/low platelets in ) Report Symptoms to Your Doctor -Temperate above 100.5 degrees -Redness, of incision or excessive or foul smelling drainage -Unusual pain or calf pain -Increased vaginal bleeding -Painful or difficulty urinating -Feelings of extreme sadness or anxiety after 2 weeks Goals to Promote Your Health * To prevent worsening of your condition and complications * To maintain your health at the optimal level Directions to Meet Your Goals Take your medications as prescribed Follow your dietary instruction Follow activity as directed Ensure plenty of rest for recovery Drink fluids for hydration Keep your appointments as scheduled Take your immunizations and boosters as scheduled If your symptoms worsen call your PCP, if no PCP go to Urgent Care Center or Emergency Room Smoking is Dangerous to Your Health. Avoid second hand smoke Call the 24-hour crisis hotline for domestic abuse at Jamar Phelps MD Jun 22, 2016 10:50
[2016-06-22 15:00] VITALS: BP 107/63; PULSE 80; RESP 18; TEMP 98.9
[2016-06-22] MEDS ORDERED: MEASLES, MUMPS, RUBELLA VACCINE 0.5 ML VIAL SQ ONE (16:00)
[2016-06-22] MEDS ORDERED: DIPHTH/TETANUS/ACEL PERTUSSIS (BOOSTER) 0.5 ML VIAL/PFS IM ONE (16:00)
[2016-06-22 19:25] VITALS: BP 140/76; PULSE 79; RESP 18; TEMP 98
[2016-06-23 08:00] VITALS: BP 139/88; PULSE 97; RESP 18; TEMP 98.5
--- NOTE | 2016-06-23 08:01 | HHI.OB ---
Subjective Post Day: 3 Remarks doing well ok to DC home Objective Vitals/I&O Vital Signs Date Time Temp Pulse Resp B/P Pulse Ox O2 Delivery O2 Flow Rate FiO2 06/22/16 19:25 98.0 79 18 06/22/16 19:25 140/76 06/22/16 15:00 80 18 107/63 06/22/16 15:00 98.9 Objective Remarks GENERAL: Well-nourished, well-developed patient. . ABDOMEN/GI: Abdomen soft, non-tender. Fundus: Firm, non-tender at umbilicus. GENITOURINARY: Light to moderate bleeding. EXTREMITIES: No cyanosis or edema, non-tender, without signs of DVT. Medications and IVs Current Medications Medications (Trade) Dose Ordered Sig/Yennifer Route Start Time Stop Time Status Last Admin (NS Flush) 2 ml BID IV 06/21/16 09:00 (NS Flush) 2 ml UNSCH PRN IV 06/21/16 00:45 (Mylicon Chew) 80 mg QID PRN PO 06/21/16 00:45 06/21/16 08:47 (Motrin) 600 mg Q6H PRN PO 06/21/16 00:45 06/22/16 23:56 (Percocet 5-325 Mg) 1 tab Q4H PRN PO 06/21/16 00:45 06/22/16 18:09 (Percocet 5-325 Mg) 2 tab Q4H PRN PO 06/21/16 00:45 06/22/16 23:56 (NS Flush) 2 ml UNSCH PRN IV 06/21/16 10:15 (NS Flush) 2 ml BID IV 06/21/16 21:00 (Calcium Gluconate Inj) 1 gm UNSCH PRN IV PUSH 06/21/16 10:15 (Americaine 20% Top Spr) 1 spray Q4H PRN TOPICAL 06/21/16 10:15 (Tucks Pads) 1 applic QID PRN TOPICAL 06/21/16 10:15 (Alejandra-Colace) 2 tab Q12H PRN PO 06/21/16 10:15 06/22/16 00:03 (Ambien) 5 mg HS PRN PO 06/21/16 10:15 (Mag-Al Plus Susp Liq) 15 ml Q8H PRN PO 06/21/16 10:15 (Protonix) 40 mg Q12HR PO 06/22/16 09:00 06/22/16 09:36 Assessment/Plan Problem List: (1) 39 weeks gestation of (2) Hypertension complicating (3) delivery delivered Assessment and Plan preeclampsia resolving, BP improved, DC home Discharge Planning dc today Jamar Phelps MD Jun 23, 2016 08:01
--- NOTE | 2016-06-23 08:06 | HHI.DS ---
Admission Date Jun 20, 2016 at 08:09 Discharge Date: Jun 23, 2016 Admitting Diagnosis Diagnosis: (1) HELLP (hemolytic anemia/elev liver enzymes/low platelets in ) Diagnosis: Secondary (2) delivery delivered Diagnosis: Principal : Primary Reason: non reassuring testing Infant: Female Brief History 30 yo comes for induction of labor. She has had 2-3 episodes of headache trouble with speech and numbness. She has has episodes of elevated BP but not high enough to deliver before 39 weeks nick[pite a non-favorable she and I have decided delivery with minor symptoms described warrants risk of induction Hospital Course doing well HEELP treated with delivery and 18 hours of Mag and now resolving. DC home Pt Condition on Discharge: Good Discharge Disposition: Discharge Home Discharge Instructions Diet Instructions: As Tolerated, No Restrictions Activities You Can Perform: Pelvic Rest Activities to Avoid: Driving for 24 hrs Follow up Referrals: HOSPITAL SUPERINTENDENT - 2 Weeks @ [facility] with Jamar Phelps MD New Medications: Oxycodone-Acetaminophen (Oxycodone-Acetaminophen) 5-325 mg Tab 2 TAB PO Q4H PRN PAIN SCALE 6 TO 10 #20 TAB Discontinued Medications: Bupropion Hcl (Wellbutrin Sr) 100 Mg Tab 100 MG PO DAILY #90 Ref 3 TAB Jamar Phelps MD Jun 23, 2016 08:06
[2016-06-23] MEDS ORDERED: OXYC1TAB63 PO (08:07)
[2016-06-23] MEDS: oxyCODONE/ACETAMINOPHEN 5 MG/325 MG TAB PO PRN (08:16)
[2016-06-23] MEDS: IBUPROFEN 600 MG TAB PO PRN (08:16)
[2016-06-23] MEDS: PANTOPRAZOLE SOD 40 MG DELAYED RELEASE TAB PO SCH (08:17)
--- NOTE | 2016-06-25 06:09 | MP ---
cc: JERRY PEHLPS M.D. DATE OF SURGERY 06/20/2016 PROCEDURE Primary low transverse section. PREOPERATIVE DIAGNOSIS Non-reassuring testing remote from delivery. POSTOPERATIVE DIAGNOSIS Non-reassuring testing remote from delivery. SURGEON Dr. Jerry Phelps ESTIMATED BLOOD LOSS 500 cc. COMPLICATIONS None. FINDINGS 1. Upon arrival to the operating room, heart rate was in the 60s, previously in the 80s to 90s. 2. Live - 6 pounds, 15 ounces. Apgars 9 and 9. 3. Meconium-stained fluid. PROCEDURE IN DETAIL After informed consent the patient was taken to the operating room where she was placed under epidural anesthesia, placed in supine position, left lateral tilt. With the patient in the operating, I listened with the Doppler and the heart rate was in the 60s. At that time we decided to move more quickly. The abdomen was prepped with DuraPrep but not allowed to dry for three minutes because of the STAT nature of the case. Once we entered the operating room, the entire delivery team was present including Anesthesia, Respiratory Therapy, Pediatrics, the surgeons, the assistants and Nursing. The patient's Perdomo was already in place to gravity. The patient was quickly draped. Time-out was taken for the section but no count could be performed in the interest of time. We then proceeded to perform the Pfannenstiel skin incision through the skin, to the fascia. The fascia was nicked in the midline, opened with a scalpel, dissected off the fascia with sharp dissection and blunt dissection. The rectus muscle was in the midline. The peritoneum was entered bluntly with a finger, incision extended laterally using blunt traction. The bladder flap was created using a scalpel, pushed down and the low transverse uterine incision was then made, carried sharply into the uterine cavity. Meconium-stained fluid was noted. Once we entered the uterine cavity, the incision was extended laterally using blunt traction upward and downward and a hand was placed into the uterus. The 's head was delivered and fundal pressure was given. The infant was delivered the remaining portion of the way. The infant did not readily cry so the cord was not delayed clamping. We clamped the cord. When we handed the infant to Pediatrics, it started cry well. It was a female . Father got to tell the mother what the sex of the baby was. Then the baby went to the care of the Nursery and the respiratory therapist. At this point the cord blood was collected. Placenta was delivered manually, the uterus exteriorized, wiped free from all remaining products of conception. The uterine incision was then closed with a running locking stitch of chromic suture. Good hemostasis achieved was achieved. The uterus was placed back into the abdomen. The peritoneum was closed with Vicryl suture. The fascia was closed with Vicryl suture and the skin was closed with a subcuticular stitch. Each layer was noted to be hemostatic prior to closure and the patient tolerated the procedure well. She was given 1 gram of Ancef during the case. She was had been receiving penicillin for GBS prophylaxis. She was not heavily bleeding at the end of the case and the uterus was firm. An x-ray would be performed, although the correct counts were made, but had not been counted prior to the surgery. We knew we started with 20 laps and 5 needles but not confirmed by nursing, so an x-ray would be performed. An x-ray is pending at the time of this dictation. MD SALO Campuzano/JENNIFER /11:33 PM /4:54 AM
== END 2016-06-23 11:18 | disposition home or self-care (01) | DRG 766 ==
LOC: H2EA 08:09 → H1EA 06-21 02:53 → H2EA 06-21 02:53 → H1EA 06-21 19:40
PROVIDERS: ADMIT Obstetrics & Gynecology; ATTEND Obstetrics & Gynecology
PROC: 10D00Z1 Extraction of Products of Conception, Low, Open Approach (ICD-10-PCS; principal; 2016-06-20)
PROC: 3E0P7GC Introduction of Other Therapeutic Substance into Female Reproductive, Via Natural or Artificial Opening (ICD-10-PCS; 2016-06-20)
PROC: 10907ZC Drainage of Amniotic Fluid, Therapeutic from Products of Conception, Via Natural or Artificial Opening (ICD-10-PCS; 2016-06-20)
PROC: 3E0S3CZ (ICD-10-PCS; 2016-06-20)
PROC: 00HU33Z Insertion of Infusion Device into Spinal Canal, Percutaneous Approach (ICD-10-PCS; 2016-06-20)
DX: O13.3 Gestational [pregnancy-induced] hypertension without significant proteinuria, third trimester (principal); O76 Abnormality in fetal heart rate and rhythm complicating labor and delivery; O14.24 HELLP syndrome, complicating childbirth; Z37.0 Single live birth; Z3A.39 39 weeks gestation of pregnancy
CPT/HCPCS: 74000; 80053; 81001; 85025; 85027; 86900; 86901; 90715; C9113; J2274; J2405; J2540; J2590; J3010; J3475; J7120

== ENCOUNTER 2016-11-07 16:33 | Emergency (ER) | payer OTHER ==
[~2016-11-07] VITALS: Ht 170.2 cm; Wt 79.5 kg
[~2016-11-07 16:33] MED LIST changes: -BUPR100CR PO; +OXYC1TAB63 PO
[2016-11-07] MEDS ORDERED: ONDANSETRON HCL 4 MG/2 ML VIAL ONE (16:59)
[2016-11-07 17:05] VITALS: BP 110/71; PULSE 95; RESP 16; O2SAT 99
--- NOTE | 2016-11-07 17:19 | PD ---
HPI Chief Complaint: GI Complaint Time Seen by Provider: 17:08 Travel History International Travel<30 days: No Contact w/Intl Traveler<30days: No Traveled to known affect area: No History of Present Illness HPI Patient is a 31-year-old female presents emergency department for evaluation of nausea vomiting and diarrhea. She's also developed some left lower quadrant abdominal cramping for the past 24 hours. She states is just watery brown stool. She states that initially she was throwing up her food but now just having dry heaves. Denies any fever, denies any blood in stool blood in the emesis. States that she has not had anything like this in some time. No other close sick contacts. Denies any vaginal bleeding or vaginal discharge PFSH Past Medical History ?: Not Social History Alcohol Use: No Tobacco Use: No Substance Use: No Allergies-Medications (Allergen,Severity, Reaction): Coded Allergies: Cat Dander (Verified Allergy, Severe, ITCHING, RUNNY NOSE, SNEEZING, RASH , 11/07/16) CATS Cultivated Oat Pollen (Verified Allergy, Severe, ITCHING, RUNNY NOSE, SNEEZING , 11/07/16) Horse Dander (Verified Allergy, Severe, ITCHING, RUNNY NOSE, SNEEZING AND RASH, 11/07/16) Reported Meds & Prescriptions Reported Meds & Active Scripts Active Zofran Odt (Ondansetron Odt) 4 Mg Tab 4 Mg SL Q6HR PRN Review of Systems Except as stated in HPI: all other systems reviewed are Neg Physical Exam Narrative GENERAL: Well-developed well-nourished no obvious distress SKIN: Focused skin assessment warm/dry. HEAD: Atraumatic. Normocephalic. EYES: Pupils equal and round. No scleral icterus. No injection or drainage. ENT: No nasal bleeding or discharge. Mucous membranes pink and moist. NECK: Trachea midline. No JVD. CARDIOVASCULAR: Regular rate and rhythm. No murmur appreciated. RESPIRATORY: No accessory muscle use. Clear to auscultation. Breath sounds equal bilaterally. GASTROINTESTINAL: Abdomen soft, non-tender, nondistended. Hepatic and splenic margins not palpable. MUSCULOSKELETAL: No obvious deformities. No clubbing. No cyanosis. No edema. NEUROLOGICAL: Awake and alert. No obvious cranial nerve deficits. Motor grossly within normal limits. Normal speech. PSYCHIATRIC: Appropriate mood and affect; insight and judgment normal. Data Data Last Documented VS Vital Signs Date Time Temp Pulse Resp B/P Pulse Ox O2 Delivery O2 Flow Rate FiO2 11/07/16 18:25 91 16 103/55 100 Room Air Orders Ondansetron Inj (Zofran Inj) (11/07/16 16:59) Complete Blood Count With Diff (11/07/16 17:25) Comprehensive Metabolic Panel (11/07/16 17:25) Lipase (11/07/16 17:25) Urinalysis - C+S If Indicated (11/07/16 17:25) Iv Access Insert/Monitor (11/07/16 17:25) Ecg Monitoring (11/07/16 17:25) Oximetry (11/07/16 17:25) Ondansetron Inj (Zofran Inj) (11/07/16 17:30) Sodium Chlor 0.9% 1000 Ml Inj (Ns 1000 M (11/07/16 17:25) Sodium Chloride 0.9% Flush (Ns Flush) (11/07/16 17:30) Ed Urine Pregnancytest Poc (11/07/16 17:25) Labs Laboratory Tests Test 11/07/16 11/07/16 17:30 17:50 White Blood Count 11.4 TH/MM3 Red Blood Count 4.84 MIL/MM3 Hemoglobin 13.8 GM/DL Hematocrit 40.7 % Mean Corpuscular Volume 84.1 FL Mean Corpuscular Hemoglobin 28.6 PG Mean Corpuscular Hemoglobin 34.0 % Concent Red Cell Distribution Width 14.5 % Platelet Count 206 TH/MM3 Mean Platelet Volume 9.7 FL Neutrophils (%) (Auto) 94.1 % Lymphocytes (%) (Auto) 2.5 % Monocytes (%) (Auto) 2.8 % Eosinophils (%) (Auto) 0.5 % Basophils (%) (Auto) 0.1 % Neutrophils # (Auto) 10.7 TH/MM3 Lymphocytes # (Auto) 0.3 TH/MM3 Monocytes # (Auto) 0.3 TH/MM3 Eosinophils # (Auto) 0.1 TH/MM3 Basophils # (Auto) 0.0 TH/MM3 CBC Comment DIFF FINAL Differential Comment Sodium Level 138 MEQ/L Potassium Level 4.1 MEQ/L Chloride Level 108 MEQ/L Carbon Dioxide Level 20.2 MEQ/L Anion Gap 10 MEQ/L Blood Urea Nitrogen 20 MG/DL Creatinine 0.68 MG/DL Estimat Glomerular Filtration 102 ML/MIN Rate Random Glucose 91 MG/DL Calcium Level 8.6 MG/DL Total Bilirubin 0.6 MG/DL Aspartate Amino Transf 20 U/L (AST/SGOT) Alanine Aminotransferase 16 U/L (ALT/SGPT) Alkaline Phosphatase 71 U/L Total Protein 8.3 GM/DL Albumin 3.9 GM/DL Lipase 340 U/L Urine Color YELLOW Urine Turbidity CLEAR Urine pH 5.5 Urine Specific Magazine 1.031 Urine Protein TRACE mg/dL Urine Glucose (UA) NEG mg/dL Urine Ketones 10 mg/dL Urine Occult Blood NEG Urine Nitrite NEG Urine Bilirubin NEG Urine Urobilinogen LESS THAN 2.0 MG/DL Urine Leukocyte Esterase NEG Urine WBC LESS THAN 1 /hpf Urine Squamous Epithelial <1 /hpf Cells Urine Mucus FEW /lpf Microscopic Urinalysis Comment CULT NOT INDICATED MDM Medical Decision Making Medical Screen Exam Complete: Yes Emergency Medical Condition: Yes Differential Diagnosis Gastritis, gastroenteritis, diarrheal illness, , lecture led abnormality, dehydration. Narrative Course 31-year-old female roomed in the emergency department, given Zofran and fluids and was feeling much better. She was very grateful and I discussed with her differential diagnosis likely leads to a diagnosis of gastroenteritis however if symptomatic management should fail if she discovers fever or worsening belly pain she should return in emerged permit further workup. Her labs did show a mild contraction acidosis without anion gap. Vital signs stable. She is stable for discharge discussed symptomatic management bland diet and follow-up with primary care physician. Diagnosis Primary Impression: Gastroenteritis Med/Other Pt SpecificInfo: Prescription(s) given Scripts Ondansetron Odt (Zofran Odt)4 Mg Tab4 Mg SL Q6HR PRN (Nausea/Vomiting) #20 TAB Ref 0 Prov:Micky Guadarrama MD 11/07/16 Disposition: 01 DISCHARGE HOME Condition: Stable Micky Guadarrama MD Nov 07, 2016 17:19
[2016-11-07] MEDS ORDERED: SODIUM CHLOR 0.9% 1000 ML INJ 1,000 ML IV SCH (17:25)
[2016-11-07] MEDS ORDERED: SODIUM CHLORIDE 0.9% FLUSH 10 ML FLUSH IV FLUSH PRN (17:30)
[2016-11-07] MEDS ORDERED: ONDANSETRON HCL 4 MG/2 ML VIAL IVP ONE (17:30)
[2016-11-07 18:14] LABS: AUTOMATED NEUTROPHIL # 10.7 TH/MM3 (1.8-7.7); BASOPHIL % 0.1 % (0.0-2.0); EOSINOPHIL # 0.1 TH/MM3 (0-0.4); EOSINOPHIL % 0.5 % (0.0-4.0); HEMATOCRIT 40.7 % (35.0-46.0); HEMO FLAGS DIFF FINAL; LYMPH % 2.5 % (9.0-44.0); LYMPHOCYTE # 0.3 TH/MM3 (1.0-4.8); MEAN CELL VOLUME 84.1 FL (80.0-100.0); MEAN CORPUSCULAR HEMOGLOBIN 28.6 PG (27.0-34.0); MONO % 2.8 % (0.0-8.0); NEUT % 94.1 % (16.0-70.0); PLATELET COUNT 206 TH/MM3 (150-450); RED BLOOD COUNT 4.84 MIL/MM3 (4.00-5.30); RED CELL DISTRIBUTION WIDTH 14.5 % (11.6-17.2); WHITE BLOOD COUNT 11.4 TH/MM3 (4.0-11.0)
[2016-11-07 18:19] LABS: ALKALINE PHOSPHATASE 71 U/L (45-117); TOTAL BILIRUBIN ADULT 0.6 MG/DL (0.2-1.0)
[2016-11-07 18:21] LABS: ALT (GPT) 16 U/L (10-53); ANION GAP 10 MEQ/L (5-15); AST (GOT) 20 U/L (15-37); BICARBONATE 20.2 MEQ/L (21.0-32.0); BLOOD UREA NITROGEN 20 MG/DL (7-18); CHLORIDE 108 MEQ/L (98-107); GLOMERULAR FILTRATION RATE 102 ML/MIN (>89); SODIUM (NA) 138 MEQ/L (136-145)
[2016-11-07 18:25] VITALS: BP 103/55; PULSE 91; RESP 16; O2SAT 100
[2016-11-07 18:27] LABS: BLOOD, URINE NEG (NEG); COMMENT (UR) CULT NOT INDICATED; CULTURE IF INDICATED CULT NOT INDICATED; GLUCOSE,URINE NEG (NEG); KETONE, URINE 10 mg/dL (NEG); MUCUS URINE FEW /lpf (OCC); NITRITE,URINE NEG (NEG); PH, URINE 5.5 (5.0-8.5); SQUAMOUS EPITHELIAL CELL URINE <1 /hpf (0-5); URINE COLOR YELLOW (YELLW/STRAW)
[2016-11-07 18:34] LABS: POTASSIUM 4.1 MEQ/L (3.5-5.1)
[2016-11-07] MEDS ORDERED: ZOFR4TAB3 SL (18:55)
== END 2016-11-07 19:32 | disposition home or self-care (01) ==
LOC: NEPD 16:33
DX: K52.9 Noninfective gastroenteritis and colitis, unspecified (principal); R10.32 Left lower quadrant pain
CPT/HCPCS: 80053; 81001; 83690; 84703; 85025; 96361; 96374; 99284; J2405; J7030